=== PATIENT | male | born 1945 | race Caucasian/White ===

== ENCOUNTER 2019-02-19 14:01 | Inpatient (IN) | payer OTHER ==
[~2019-02-19] VITALS: Ht 165.1 cm; Wt 59.4 kg
[2019-02-19] MEDS ORDERED: IMITREX 50 MG T50 MG PO (14:26)
[2019-02-19] MEDS ORDERED: DIAZEPAM 5 MG5 M1 PO (14:27)
[2019-02-19] MEDS ORDERED: NEURONTIN 300300 M1 PO (14:27)
[2019-02-19] MEDS ORDERED: NORVASC2.5 MG PO (14:28)
[2019-02-19] MEDS ORDERED: NAPROSYN500 MG PO (14:28)
[2019-02-19] MEDS ORDERED: [UNRECOGNIZED DRUG - OTHER] INTRADERM (14:29)
[2019-02-19] MEDS ORDERED: ASPIR 8181 MG PO (14:29)
[2019-02-19] MEDS ORDERED: TUMS PO (14:29)
[2019-02-19] MEDS ORDERED: VITAMINC500 PO (14:30)
[2019-02-19] MEDS ORDERED: FISH OIL 1,001000 M2 PO (14:33)
[2019-02-19 14:52] LABS: ABSOLUTE BASOPHILS 0.1 thou/uL (0.0-0.2); ABSOLUTE EOSINOPHILS 0.1 thou/uL (0.0-0.7); ABSOLUTE LYMPHOCYTES 1.7 thou/uL (0.8-5.3); ABSOLUTE MONOCYTES 0.5 thou/uL (0.0-1.2); ABSOLUTE NEUTROPHILS 4.8 thou/uL (1.6-8.1); BASOPHILS 1.7 %; EOSINOPHILS 0.9 %; HEMATOCRIT 37.3 % (42.0-52.0); LYMPHOCYTES 23.4 %; MCH 34.2 pg (26.0-34.0); MCHC 34.8 g/dL (28.0-37.0); MCV 98.4 fL (80.0-100.0); MONOCYTES 6.7 %; NUCLEATED RBCS 0 /100WBC; PLATELET COUNT* 328 thou/uL (150-400); POLYS 67.3 %; RBC 3.79 mil/uL (4.50-6.00); RDW-CV 13.4 % (10.5-14.5); WBC 7.1 thou/uL (4.0-11.0)
[2019-02-19 15:07] LABS: ALBUMIN 3.9 g/dL (3.4-5.0); CALCIUM 8.9 mg/dL (8.5-10.1); CREATININE 0.8 mg/dL (0.6-1.3); POTASSIUM 3.5 mmol/L (3.5-5.1); TOTAL BILIRUBIN 0.4 mg/dL (<0.1-1.0); TOTAL PROTEIN 7.5 g/dL (6.4-8.2)
[2019-02-19 17:15] VITALS: BP 149/91
[2019-02-19 18:01] VITALS: BP 145/88
--- NOTE | 2019-02-19 18:15 | NUR ---
PATIENT ARRIVED TO UNIT AT APPROX 1730. ALERT AND ORIENTED X4. ASSESSMENT COMPLETED AND CHARTED. VSS ON ROOM AIR. COMPLAINT OF PAIN MANAGED WITH IV FENTANYL. FLUIDS STARTED ORDERED. PATIENTS SON AT BEDSIDE AND AGGRESSIVELY QUESTIONING THIS NURSE ON SPECIFIC ORDERS FOR PATIENT TO BE SEEN BY ORTHOPEDIC DOCTORS AND UPSET THAT "HIS FATHER DID NOT SEE ANY DOCTOR AT ALL IN THE ED AND THERE ARENT ANY ORDERS FOR HIM TO SEE ANY SPECIALIST ABOUT HIS HIP PAIN. THE ONLY REASON HE IS STAYING IS BECAUSE HE WAS TOLD HE WAS SEEING AN MARKETING DIRECTOR ASSISTED LIVING HERE." I STATED THAT I WAS NOT AWARE OF THERE BEING AN ORDER FOR THAT BUT I WAS ATTENDING TO ADMIT THE PATIENT AND SEE TO HIS PAIN BEFORE I REVIEWED HIS ORDERS. PATIENTS SON CONTINUED TO BE AGGRESSIVE, STATING "THIS IS [facility], [facility] IT NOT?: THIS NURSE AGAIN STATED THAT I WOULD HAVE TO REVIEW HIS ORDERS AND THAT I HAD NOT BEEN ABLE TO DO SO YET THEY HAD ARRIVED TO THE UNIT AND IMMEDIATELY CALLED OUT FOR PAIN MEDICATION, WHICH I WAS IN THE PROCESS OF BRINGING, SAID I WOULD REVIEW THE ORDERS AND GET BACK TO THEM... FALL PRECAUTIONS IN PLACE, FALL AGREEMENT SIGNED AND PATIENT VOICED UNDERSTANDING OF CALLING OUT FOR ASSISTANCE. CALL LIGHT PLACED IN REACH. NURSING WILL CONTINUE TO MONITOR.
[2019-02-19 20:00] VITALS: BP 142/83
--- NOTE | 2019-02-20 07:53 | NUR ---
Alert and oriented x 4. He has been in bed all of this shift. He is having low back pain and rt hip pain. He had painmeds x 1 and scheduled tramadol. His vitals are stable. He has slept intermittenly. He's nothing by mouth since midnight.
[2019-02-20 08:00] VITALS: BP 167/87
[2019-02-20 12:28] VITALS: BP 184/109
[2019-02-20 15:45] VITALS: BP 162/90
--- NOTE | 2019-02-20 18:42 | NUR ---
PATIENT IS ALERT AND ORIENTED X 4. PAIN MANAGED WITH IV AND PO PAIN MEDICATION. IV PATENT. DENIED NAUSEA DURING THE DAY. HOURLY ROUNDS MAINTAINED. PATIENT REFUSED TO PARTICIPATE WITH THERAPY. INFORMED @ 755 THAT MRI WOULD BE DOWN AND NOT WORKING UNTIL TOMORROW. PATIENT INFORMED AND PROVIDED WITH DIET. COPY OF HOME MEDICATION LIST PLACED IN CHART. CALL LIGHT WITHIN REACH.
[2019-02-20 20:00] VITALS: BP 150/84
[2019-02-21] VITALS: BP 161/84
[2019-02-21 03:30] VITALS: BP 165/89
[2019-02-21 03:56] LABS: HEMOGLOBIN 12.7 gm/dL (14.0-18.0); MCHC 34.2 g/dL (28.0-37.0); MCV 99.4 fL (80.0-100.0); MPV 7.8 fl. (7.2-11.1); RBC 3.72 mil/uL (4.50-6.00); RDW-CV 13.4 % (10.5-14.5); WBC 6.6 thou/uL (4.0-11.0)
[2019-02-21 04:04] LABS: CALCIUM 8.8 mg/dL (8.5-10.1); CREATININE 0.9 mg/dL (0.6-1.3); MAGNESIUM 1.9 mg/dL (1.8-2.4); POTASSIUM 3.5 mmol/L (3.5-5.1)
--- NOTE | 2019-02-21 05:53 | NUR ---
Oriented x 3 but forgetful. He seems to more forgetful and drowsy than he had been on the previous night filler. He is jumpy. His vitals are stable and roomair sat has been 94-97%. He was riving in pain in his lower back and rt hip at start of shift but I have back off on pain meds and he seems to be more oriented now. New order obtained for torres Lang and that seems to have helped. He has had nothing by mouth since midnight. He hsa slept well this shift.
[2019-02-21 08:23] VITALS: BP 166/88
[2019-02-21 08:44] LABS: APTT 27.7 Seconds (25.0-31.3); PROTIME 10.7 Seconds (9.20-11.50)
--- NOTE | 2019-02-21 10:00 | NUR ---
REC'D REPORT FROM NOC RN, ASSUMED CARE OF PATIENT APPROX 0730. A&OX4, ABLE TO COMMUNICATE NEEDS TO STAFF. ASSESSMENT COMPLETE, VS OBTAINED. MED/SURG STATUS. O2 SATS 96% RA. PATIENT RESISTS TRANSFER TO CHAIR OR UP TO BATHROOM D/T PAIN. PATIENT TO MRI VIA TRANSFER TO [facility]. NPO FOR POSSIBLE IR PROCEDURE. HOURLY ROUNDING FOR SAFETY AND PATIENT NEEDS.
[2019-02-21 11:23] LABS: URINE BILIRUBIN NEGATIVE (Negative); URINE BLOOD NEGATIVE (Negative); URINE CLARITY CLEAR; URINE COLOR YELLOW; URINE GLUCOSE-RANDOM NEGATIVE (Negative); URINE KETONES NEGATIVE (Negative); URINE LEUKOCYTES-REFLEX NEGATIVE (Negative); URINE NITRITE-REFLEX NEGATIVE (Negative); URINE PROTEIN NEGATIVE (Negative); URINE UROBILINOGEN 0.2 E.U./dl (0.2-1.0)
--- NOTE | 2019-02-21 13:30 | NUR ---
PT.DECLINED THERAPIES. HE SAID HE WAS TOO STRESSED OUT AND IN TOO MUCH PAIN. CM SPOKE WITH HIM. PT.AWAITING RESULTS OF MRI. DISCUSSED ROLE OF CM AND WE NEEDED TO GET A PLAN IN PLACE FOR WHENEVER HE IS DISCHARGED. HE SAID HE LIVES ALONE. HIS SON AND HIS LIVE UP THE STREET FROM HIM. AT BEGINNING OF CONVERSATION HE SAID THEY WERE OF LITTLE HELP TO HIM. TOWARDS THE END OF CONVERSATION HE SAID SON DRIVES HIM TO HIS APPTS, HE NO LONGER DRIVES. [employer] SHOPS FOR HIM AND CLEANS FOR HIM. HE COOKS VERY LITTLE BUT MICROWAVES MOST OF HIS FOOD. IF [employer] CANT SHOP FOR HIM, HE HAS GROCERIES DELIVERED. ALSO HAS PRESCRIPTIONS DELIVERED. HE DOES HIS OWN LAUNDRY. DID NOT USE DME UNTIL HE HURT HIS BACK. HAD A WALKER IN THE CLOSEST THAT HE HAD TO GET OUT AND START USING. ASKED HIM ABOUT SNFS AND IF HE HAD ONE HE WOULD WANT TO GO TO IF NEEDED TO. HE SAID NO HE WAS NOT READY TO MAKE THAT DECISION UNTIL HE FINDS OUT THE RESULTS OF MRI. HE ALSO WANTS TO TALK IT OVER WITH SON. CM WILL FOLLOW.
--- NOTE | 2019-02-21 13:30 | NUR ---
PATIENT RETURNED TO ROOM FROM MRI. DIET ORDERED AND OBTAINED. PATIENT STATES "CAN YOU GIVE ME SOME OF THAT STUFF THROUGH MY IV FOR INSTANT PAIN RELIEF." EDUCATION GIVEN R/T SCHEDULED MEDICATIONS GIVEN AND NEED TO ALLOW COMPLETE OR PARTIAL RELIEF FROM ORAL MEDS. PATIENT ACCEPTING OF THIS PLAN. CALL LIGHT WITHIN REACH. HOURLY ROUNDING FOR SAFETY AND PATIENT NEEDS.
[2019-02-21 16:00] VITALS: BP 133/72
[2019-02-21 20:00] VITALS: BP 135/60
--- NOTE | 2019-02-21 23:27 | NUR ---
ASSUMED PATIENT CARE AT 1900. PATIENT ALERT AND ORIENTED TIMES FOUR. MINOR COMPLAINTS OF PAIN NOTED, CONTROLLED WITH ORAL PAIN MEDICATION. VERBALIZES THAT HE FEELS LIKE HE IS GETTING STRONGER. IV PATENET TO FLUIDS INFUSING. WILL CONTINUE TO MONITER.
--- NOTE | 2019-02-22 03:37 | NUR ---
PATIENT ABLE TO AMBULATE WITH STB AND WALKER TO THE RESTROOM
--- NOTE | 2019-02-22 06:08 | NUR ---
PATIENT RESTED THROUGH THE NIGHT. WAS UP ONCE TO USE THE RESTROOM. DIRECTOR INTERNAL COMMUNICATIONS COMPLETED DOCUMENTED. HOURLY ROUNDING COMPLETED CHARTED
[2019-02-22 08:00] VITALS: BP 157/87
[2019-02-22 16:00] VITALS: BP 167/92
--- NOTE | 2019-02-22 17:05 | NUR ---
PT REMAINED A&Ox4 THOUGHOUT SHIFT. VITALS STABLE. PAIN CONTROLLED WITH NORCO. FAMILY IN ROOM. PT HAS NOT BEEN COMPLIANT WITH FALL PRECAUTIONS. WORKED SOME WITH THERAPY. FALL EDUCATION ENCOURAGED FROM BOTH NURSE AND THERAPY. CALL LIGHT WITHIN REACH. WILL CONTINUE TO MONITOR.
[2019-02-22 21:00] VITALS: BP 134/71
--- NOTE | 2019-02-23 05:59 | NUR ---
ALERT AND ORIENTED X4. ENCOURAGED TO USE CALL LIGHT TO ASK FOR ASSIST. CALL LIGHT WITHIN REACH. PATIENT NOT COMPLIANT WITH FALL PRECAUTIONS. PO PAIN MEDICATIONS HELPFUL WITH BACK PAIN. PATIENT RESTING QUIETLY THROUGHOUT NIGHT. RASH NOTED ON PATIENT'S BACK AND UPPER ARMS. PATIENT STATED HE HAD RASH PRIOR TO COMING INTO HOSPITAL. HE STATED HE HAS HAD RASH FOR AWHILE BUT UNSURE FOR HOW LONG. WILL PASS ON TO NEXT SHIFT. NO C/O N/V. WILL CONTINUE TO MONITOR.
[2019-02-23 08:00] VITALS: BP 138/71
[2019-02-23 16:00] VITALS: BP 149/96
--- NOTE | 2019-02-23 17:09 | NUR ---
PT REMAINED A&Ox4 THROUGHOUT SHIFT. VITALS STABLE. PAIN CONTROLLED WITH TRAMADOL AND NORCO. REMAINS TO BE NON COMPLIANT WITH FALL PRECAUTIONS. EDUCATED ON FALL RISKS. IV OUT, OK PER CALL LIGHT WITHIN REACH. WILL CONTINUE TO MONITOR.
[2019-02-23 21:00] VITALS: BP 145/79
--- NOTE | 2019-02-24 06:57 | NUR ---
PT RECIEVING SCHEDULED TRAMADOL Q 6 HRS FOR PAIN WITH GOOD RESULTS. PT TOOK PRN NORCO WITH MIDINGHT AND 0600 DOSE. PT UP WITH WALKER AMBULATING HALLS INEPENDENTLY. PT INFORMED TO CALL FOR ASSISTANCE WHEN GETTING UP. PT NOT COMPLIANT WITH INSTRUCTIONS BUT VERY PLEASANT AND CALF WITH STAFF.
--- NOTE | 2019-02-24 14:24 | NUR ---
FOLLOWING PATIENT ALONG WITH DR. XIAO. PATIENT WORKED WITH PT AND OT TODAY AND WAS MOD I/SBA. PER NURSING PATIENT HAS BEEN UP AD FELTON IN ROOM AND HALLWAY. PATIENT DOES APPEAR TO HAVE SOME IMPULSIVENESS AND INSIGHT ISSUES PER THERAPY NOTES. HE DOES NOT QUALIFY FOR ACUTE REHAB BUT MAY BENEFIT FROM SKILLED VS HH FOR SAFETY AND INSIGHT.
--- NOTE | 2019-02-24 15:21 | NUR ---
Following for d/c planning needs. Spoke with Kecia Coker, material liaison. Pt does not qualify for inpatient rehab. Spoke with pt to inform him. Pt adamantly refuses SNF at this time. Notified physician. Will remain available to assist as needed.
[2019-02-24 16:28] VITALS: BP 159/77
--- NOTE | 2019-02-24 18:38 | NUR ---
PT VSS THIS SHIFT WITH ANXIETY REGARDING FUTURE PLANS. PT TOLERATING RA THIS SHIFT. PT REFUSING ALL OF THE FALL RISK BUNDLE AND IS UPSET THAT HE DOES NOT QUALIFY FOR IN PATIENT REHAB. NO LABS OBTAINED THIS SHIFT. SPOKE WITH PT'S DAUGHTER IN LAW REGARDING HIM CALLING HER AND STATING THAT THE HOSPITAL WAS "KICKING HIM OUT AND THAT THEY NEEDED TO COME AND PICK HIM UP" SHE WAS TOLD THAT THE PT DID NOT QUALIFY FOR THE INPATIENT REHAB BUT THERE ARE RECOMMENDATIONS FOR HIM TO GO TO A SNF FOR SAFETY REASONS. HOURLY ROUNDING MAINTAINED. WILL CONTINUE TO MONITOR AND ASSESS
[2019-02-24 20:45] VITALS: BP 168/85
--- NOTE | 2019-02-25 07:20 | NUR ---
PATIENT HAS SLEPT OFF AND ON DURING THE SHIFT. VSS ON RA, ALTHOUGH BP ELEVATED. MEDICATIONS GIVEN ORDERED AND CHARTED. PATIENT REFUSING BED ALARM AND FALL PRECAUTIONS AND CHOOSING TO BE UP AD-FELTON TO THE BATHROOM AND WALKS IN THE HALLWAY AT TIMES. PATIENT INSTRUCTED TO USE CALL LIGHT WHEN NEEDING ASSISTANCE. HOURLY ROUNDS MADE. WILL CONTINUE WITH PLAN OF CARE AND NURSING TO MONITOR.
[2019-02-25 07:25] VITALS: BP 146/86
--- NOTE | 2019-02-25 12:30 | NUR ---
LONG DISCUSSION WITH PT.ABOUT SNFS. HE WAS CONCERNED IT WOULD AFFECT HIS LTC INSURANCE. EXPLAINED THAT HIS MEDICAL INSURANCE WOULD COVER HIS SKILLED STAY. GAVE HIM A LIST OF FACILITIES THAT CONTRACT WITH HIS INSURANCE. HE SAID HE WOULD THINK ABOUT IT. CHECKED SNF BENEFIT THROUGH INSURANCE CO. HE IS COVERED AT 100% FOR DAYS 0-100 AT IN NETWORK FACILITIES. UP TO 100 MAX DAYS. HE HAS NO OUT OF POCKET OR DEDUCTIBLE. WILL DISCUSS WITH HIM.
[2019-02-25 15:58] VITALS: BP 142/96
--- NOTE | 2019-02-25 17:00 | NUR ---
PT REMAINED ALERT AND ORIENTED. PT GIVEN PAIN MEDS ORDERED. PT TALKED WITH DOCTOR AND CASE MANAGEMENT ABOUT SENIOR CARE FACILITIES. PT REFUSES FALL RISK PRECAUTIONS. HOURLY ROUNDING COMPLETED. WILL CONTINUE TO MONITOR.
[2019-02-25 21:20] VITALS: BP 159/81
--- NOTE | 2019-02-26 06:27 | NUR ---
PT REMAINED ALERT AND ORIENTED. VITALS, SpO2 STABLE RA. MEDS GIVEN ORDERED. PT EXPRESSED CONCERN THAT HIS SCHEDULED TRAMADOL CHANGED TO PRN. BOTH HYDROCODONE AND TRAMADOL PROVIDED PER PT REQUEST. NO NAUSEA OR VOMITING THIS SHIFT. HOULRY ROUNDING COMPLETED. WILL CONTINUE TO MONITOR.
[2019-02-26 07:40] VITALS: BP 124/97
[2019-02-26] MEDS ORDERED: NORCO 7.5-3251 EACH PO (09:34)
[2019-02-26] MEDS ORDERED: TRAMADOL 50 MG50 MG PO (09:34)
[2019-02-26] MEDS ORDERED: DIAZEPAM 5 MG5 M1 PO (09:34)
[2019-02-26] MEDS ORDERED: MIRALAX17 GM PO (09:34)
[2019-02-26] MEDS ORDERED: CALCIUM 600 +1 EAC1 PO (09:34)
[2019-02-26] MEDS ORDERED: COLACE 100 MG100 MG PO (09:34)
[2019-02-26] MEDS ORDERED: LIDOPATCH1 EACH TOP (09:34)
[2019-02-26] MEDS ORDERED: NEURONTIN 300300 M1 PO (09:34)
--- NOTE | 2019-02-26 11:00 | NUR ---
VOICE MAIL FROM DAUGHTER IN LAW, KESHIA. SHE AND HER WOULD LIKE A REFERRAL MADE TO [facility]. FAXED REFERRAL TO [facility]. LEFT MESSAGE FOR HER TO LET ME KNOW THAT SHE RECEIVED REFERRAL.
[2019-02-26 16:17] VITALS: BP 156/98
--- NOTE | 2019-02-26 16:29 | NUR ---
SPOKE WITH [facility]. SHE SAID THEY WILL NOT HAVE A BED UNTIL SUNDAY. DISCUSSED WITH PT.AND DAUGHTER IN LAW. THEY DO NOT WANT ANYWHERE ELSE BUT [facility]. EXPLAINED TO THEM,[facility] STILL NEEDS TO ACCEPT HIM AND INSURANCE HAS TO AUTH SKILLED TIME. LEFT [facility] A MESSAGE AT [facility] OF SAME.
--- NOTE | 2019-02-26 17:24 | NUR ---
PT REMAINED ALERT AND ORIENTED. PT TRANSFERRING TO ROOM 200. PT DENIED ANY NEEDS AT THIS TIME. PT RESTING IN ROOM. PT REFUSES FALL RISK PRECAUTIONS. HOURLY ROUNDING COMPLETED. REPORT GIVEN TO NEW NURSE.
--- NOTE | 2019-02-26 17:50 | NUR ---
PT ARRIVED TO UNIT, ORIENTED TO CALL LIGHT AND ROOM. REPORT TAKEN FROM MARTHA ZHOU. THIS NURSE AGREES WITH CURRENT ASSESSMENT AND WILL CONT POC. PT A&O X4, VSS, RA, DENIES ANY PAIN OR SOA, NO TELEMETRY ORDERED PT IS MED SURG.
[2019-02-26 19:30] VITALS: BP 160/98
[2019-02-27] VITALS: BP 145/84
--- NOTE | 2019-02-27 01:39 | NUR ---
RECIEVED REPORT AND ASSUMED CARE AT 1900. PT IS MEDSURG SO NO LION HUNTER. BP IS ELEVATED OTHER THAN THAT VITAL SIGNS STABLE. PT IS UP WITH SBA. PT HAS BACK PAIN AND HEADACHE AND PRN PAIN MEDS GIVEN ORDERED. ASSESSMENT COMPLETED, DISCUSSED PLAN OF CARE AND PT UNDERSTANDS. BED LOCKED, ALARM ON AND CALL LIGHT WITHIN REACH. FALL PRECAUTIONS IN PLACE. HOURLY ROUNDING DONE AND ALL NEEDS MET. NURSING WILL CONTINUE TO MONITOR.
[2019-02-27 07:30] VITALS: BP 162/103
--- NOTE | 2019-02-27 10:03 | NUR ---
JOHN spoke with Eda at [facility], they are able to accept Pt for skilled tomorrow. Eda to initiate auth today for dc tomorrow. Updated Pt, he is in agreement.
--- NOTE | 2019-02-27 12:47 | NUR ---
Nutrition: Pt admitted with multiple vertebral FXs. Discharging to facility tomorrow. Alb 3.9. Wt: 131#. Regular diet. No nutrition concerns. Low risk.
[2019-02-27 15:22] VITALS: BP 131/85
[2019-02-27 20:00] VITALS: BP 109/69; BP 158/92
[2019-02-28] VITALS: BP 146/82
--- NOTE | 2019-02-28 06:24 | NUR ---
ASSUMED PT CARE AT 1930. ASSESSMENT COMPLETED CHARTED. ABLE TO MAKE NEEDS KNOWN. PT RESTING IN BED AT THIS TIME. C/O PAIN IN BACK AND GAVE PRN PAIN MEDICATION REQUESTED BY PT. UP AD FELTON IN ROOM. DID NOT EAT ANY SUPPER LAST NIGHT, SAID STOMACH WAS HURTING AND MAY HAVE ATE TOO MUCH. WILL CONTINUE TO MONITOR.
[2019-02-28 12:38] VITALS: BP 126/71
== END 2019-02-28 15:01 | DRG 543 ==
LOC: M.ERS 14:01 → M.TBA-ER 16:35 → M.ORTHSURG 16:35 → M.2W 02-26 17:25
PROVIDERS: Physician Assistant; Radiology Diagnostic Radiology; ADMIT Internal Medicine
DX: M80.08XA Age-related osteoporosis with current pathological fracture, vertebra(e), initial encounter for fracture (principal); E87.1 Hypo-osmolality and hyponatremia; F32.9 Major depressive disorder, single episode, unspecified; G43.909 Migraine, unspecified, not intractable, without status migrainosus; F41.9 Anxiety disorder, unspecified; R10.2 Pelvic and perineal pain; G89.4 Chronic pain syndrome; F17.210 Nicotine dependence, cigarettes, uncomplicated; E87.6 Hypokalemia; F41.0 Panic disorder [episodic paroxysmal anxiety]; Z79.82 Long term (current) use of aspirin; Z79.899 Other long term (current) drug therapy; Z90.49 Acquired absence of other specified parts of digestive tract